=== PATIENT | female | born 1975 | race Caucasian/White ===

== ENCOUNTER 2018-05-15 12:36 | Emergency (ER) | payer OTHER ==
[2018-05-15 12:46] VITALS: TEMP 98.2; BMI 23.1
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
[2018-05-15 14:42] LABS: HCG,QUALITATIVE URINE Negative
[2018-05-15 15:01] LABS: EPI CELLS 4.8 /HPF (0-5); PH,URINE 5.5 (5.0-8.0); URINE APPEARANCE CLEAR; URINE BACTERIA 78.6 /hpf (NEGATIVE); URINE BILIRUBIN NEGATIVE (NEGATIVE); URINE CASTS 15 /hpf (0-8); URINE COLOR YELLOW; URINE GLUCOSE (UA) NEGATIVE (NEGATIVE); URINE KETONE NEGATIVE (NEGATIVE); URINE LEUK ESTERASE NEGATIVE (NEGATIVE); URINE NITRITE NEGATIVE (NEGATIVE); URINE PROTEIN NEGATIVE (NEGATIVE); URINE RBC 6 /hpf (0-4); URINE UROBILINOGEN 0.2 mg/dL (0.2-1.0); URINE WBC 4 /hpf (0-5)
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
[2018-05-15 16:07] VITALS: BP 148/78; PULSE 78
== END 2018-05-15 16:06 | disposition home or self-care (01) ==
LOC: JER 12:36
PROC: 2W3DX1Z Immobilization of Left Lower Arm using Splint (ICD-10-PCS; principal; 2018-05-15)
DX: S62.395A Other fracture of fourth metacarpal bone, left hand, initial encounter for closed fracture (principal); V43.52XA Car driver injured in collision with other type car in traffic accident, initial encounter; W22.11XA Striking against or struck by driver side automobile airbag, initial encounter; Y92.414 Local residential or business street as the place of occurrence of the external cause; Y93.89 Activity, other specified; Y99.8 Other external cause status
CPT/HCPCS: 71046-TC-FY; 73090-TC-LT-FY; 73130-TC-LT-FY; 73560-TC-LT-FY; 81003; 84703; 99281-25

== ENCOUNTER 2023-07-08 20:58 | Emergency (ER) | payer BC, OTHER ==
[2023-07-08 21:13] VITALS: BMI 22.6
[2023-07-08] MEDS ORDERED: ACETAMINOPHEN INJECTION 100 ML IVPB ONE (23:13)
[2023-07-08] MEDS: ACETAMINOPHEN 1000 MG/100 ML BAG IVPB ONE (23:18)
[2023-07-08 23:19] LABS: HEMATOCRIT 40.1 % (32.4-45.2); HEMOGLOBIN 13.3 GM/dL (10.7-15.3); MCH 27.3 pg (25.7-33.7); MCHC 33.1 g/dl (32.0-36.0); MEAN CELL VOLUME 82.3 fl (80-96); PLATELET COUNT 304 10^3/uL (134-434); RBC 4.88 M/mm3 (3.60-5.2); RDW 14.6 % (11.6-15.6); WHITE BLOOD COUNT 17.6 K/mm3 (4.0-10.0)
[2023-07-08] MEDS: morphine CARPU-JECT 2 MG/1 ML DISP.SYRIN IVPUSH ONE (23:19)
[2023-07-08 23:31] LABS: EPI CELLS >36 /uL (0-25.1); HYALINE CASTS 76 /uL (0-3.1); PH,URINE 7.5 (5.0-8.0); POTASSIUM 3.8 mmol/L (3.5-5.1); URINE APPEARANCE CLOUDY; URINE BACTERIA 2283 /uL (0-1359); URINE BILIRUBIN NEGATIVE (NEGATIVE); URINE COLOR YELLOW; URINE GLUCOSE (UA) NEGATIVE (NEGATIVE); URINE KETONE 1+ (NEGATIVE); URINE LEUK ESTERASE TRACE (NEGATIVE); URINE NITRITE NEGATIVE (NEGATIVE); URINE PROTEIN TRACE (NEGATIVE); URINE RBC 2 /uL (0-23.9); URINE WBC 7 /uL (0-25.8)
[2023-07-08 23:33] LABS: BLOOD UREA NITROGEN 13.3 mg/dL (7-18); CALCIUM 9.1 mg/dL (8.5-10.1)
[2023-07-08 23:34] LABS: ALBUMIN 4.3 g/dl (3.4-5.0)
[2023-07-08 23:37] LABS: CREATININE 0.6 mg/dL (0.55-1.3)
[2023-07-08] MEDS ORDERED: FAMOTIDINE 20 MG/50 ML IVPB 20 MG/50 ML MG IVPB ONE (23:37)
[2023-07-08 23:38] LABS: BILIRUBIN,TOTAL 0.4 mg/dL (0.2-1); TOT PROT 7.9 g/dl (6.4-8.2)
[2023-07-08 23:39] LABS: HCG,QUALITATIVE URINE Negative
[2023-07-09 00:05] LABS: OVALOCYTE 1+
[2023-07-09 00:07] LABS: PLATELET ESTIMATE ADEQUATE
[2023-07-09] MEDS: FAMOTIDINE 20 MG/50 ML IVPB 20 MG/50 ML MG IVPB ONE (00:18)
[2023-07-09 01:27] VITALS: BP 125/80; PULSE 96; RESP 13; TEMP 99.1
[2023-07-09] MEDS ORDERED: KETOROLAC TROMETHAMINE 30 MG/1 ML VIAL ONE (03:29)
[2023-07-09] MEDS: KETOROLAC TROMETHAMINE 30 MG/1 ML VIAL IVPUSH ONE (03:39)
== END 2023-07-09 05:08 | disposition home or self-care (01) ==
LOC: JER 20:58
PROC: 3E033GC Introduction of Other Therapeutic Substance into Peripheral Vein, Percutaneous Approach (ICD-10-PCS; principal; 2023-07-08)
PROC: 3E033GC Introduction of Other Therapeutic Substance into Peripheral Vein, Percutaneous Approach (ICD-10-PCS; 2023-07-08)
PROC: 3E033NZ Introduction of Analgesics, Hypnotics, Sedatives into Peripheral Vein, Percutaneous Approach (ICD-10-PCS; 2023-07-08)
PROC: 3E0333Z Introduction of Anti-inflammatory into Peripheral Vein, Percutaneous Approach (ICD-10-PCS; 2023-07-08)
DX: R10.30 Lower abdominal pain, unspecified (principal); R10.2 Pelvic and perineal pain; R11.0 Nausea
CPT/HCPCS: 36415; 74177-TC; 76830-TC; 80053; 81003; 83690; 84703; 85025; 87086; 93005; 93010; 99285-25; J0131; Q9967